=== PATIENT | male | born 1970 | race African-American/Black ===

== ENCOUNTER 2017-02-15 11:41 | Emergency (ER) | payer MEDICAID ==
[~2017-02-15] VITALS: Ht 180.3 cm; Wt 84.0 kg
[~2017-02-15 11:41] MED LIST: DOCU-150 PO; FERR-63 PO; FOLI-43 PO; GABA-531 PO; LOSA25TA3 PO; POTA20TA82 PO; vitamin b1 PO
[2017-02-15] MEDS ORDERED: IBUPROFEN 800MG TABLET PO ONE (13:45)
[2017-02-15 18:32] VITALS: BP 116/69
== END 2017-02-15 18:58 | disposition home or self-care (01) ==
LOC: ER 14:16
DX: M25.561 Pain in right knee (principal); M25.461 Effusion, right knee
CPT/HCPCS: 73562; 99284; L1830; Z7610

== ENCOUNTER 2017-03-15 14:26 | Emergency (ER) | payer MEDICAID ==
[~2017-03-15] VITALS: Ht 180.3 cm; Wt 86.0 kg
[2017-03-15] MEDS ORDERED: IBUPROFEN 800MG TABLET PO ONE (16:30)
[2017-03-15 18:56] VITALS: BP 121/65
== END 2017-03-15 19:18 | disposition home or self-care (01) ==
LOC: ER 16:30
DX: S83.91XA Sprain of unspecified site of right knee, initial encounter (principal); X58.XXXA Exposure to other specified factors, initial encounter; Y93.89 Activity, other specified; Y92.89 Other specified places as the place of occurrence of the external cause; Y99.8 Other external cause status
CPT/HCPCS: 93971; 99284

== ENCOUNTER 2017-06-01 11:59 | Emergency (ER) | payer MEDICAID ==
[~2017-06-01] VITALS: Ht 180.3 cm; Wt 80.0 kg
[2017-06-01] MEDS ORDERED: FAMOTIDINE 20MG/2ML VIAL IV STA (13:24)
[2017-06-01] MEDS ORDERED: MORPHINE SULFATE 4 MG/ML CPJ (NOT FOR IM USE) IV STA (13:24)
[2017-06-01] MEDS ORDERED: ONDANSETRON HCL 4MG/2ML VIAL IV STA (13:24)
[2017-06-01 13:56] LABS: HEMATOCRIT. 33.2 % (42.0-52.0); HEMOGLOBIN. 10.6 g/dL (14.0-18.0); MEAN CORPUSCULAR HEMOGLOBIN 22.5 pg (28.0-32.0); MEAN CORPUSCULAR VOLUME 70.4 fL (80.0-94.0); MEAN PLATELET VOLUME 6.5 fl (7.4-10.4); PLATELET 275 x1000/uL (130-400); RED BLOOD CELL COUNT 4.72 mill/uL (4.7-6.1); RED CELL DISTRIBUTION WIDTH 18.4 % (11.6-14.6)
[2017-06-01 14:01] LABS: INR 1.1; PARTIAL THROMBOPLASTIN TIME 27.6 sec (23.4-31.0); PROTHROMBIN TIME 11.3 sec (9.4-11.6)
[2017-06-01 14:13] LABS: CARBON DIOXIDE 24 mEq/L (21-32); CHLORIDE 105 mEq/L (98-107)
[2017-06-01 14:16] LABS: ETHANOL BLOOD 329 mg/dL
[2017-06-01 15:51] LABS: PLATELET ESTIMATE NORMAL
[2017-06-01 16:24] LABS: *AMPHETAMINES SCREEN URINE NEGATIVE (NEGATIVE); *BARBITURATES SCREEN URINE NEGATIVE (NEGATIVE); *BENZODIAZEPINES SCREEN URINE NEGATIVE (NEGATIVE); *COCAINE SCREEN URINE NEGATIVE (NEGATIVE); CANNABINOID URINE SCREEN PRESUMTIVE POSITIVE (NEGATIVE); METHADONE URINE SCREEN NEGATIVE (NEGATIVE); OPIATES URINE SCREEN PRESUMTIVE POSITIVE (NEGATIVE); PHENCYCLIDINE URINE SCREEN NEGATIVE (NEGATIVE)
[2017-06-01 19:35] VITALS: BP 131/79
== END 2017-06-01 19:25 | disposition home or self-care (01) ==
LOC: ER 12:08
DX: F12.10 Cannabis abuse, uncomplicated (principal); F10.129 Alcohol abuse with intoxication, unspecified; D64.9 Anemia, unspecified; R79.1 Abnormal coagulation profile; Y90.8 Blood alcohol level of 240 mg/100 ml or more
CPT/HCPCS: 36415; 74010; 80053; 80305; 83690; 85025; 85610; 85730; 96374; 96375; 99285; G0482; J2270; J2405; J3490; Z7610

== ENCOUNTER 2021-09-26 00:22 | Emergency (ER) | payer MEDICAID ==
[~2021-09-26] VITALS: Ht 180.3 cm; Wt 102.1 kg
[~2021-09-26 00:22] MED LIST changes: +CYAN100T43 MT; -GABA-531 PO; +GABA-532 PO; +L25 PO; +PANT40TA51 MT; +THIA100T72 PO; -vitamin b1 PO
[2021-09-26 00:23] VITALS: BP 134/86
[2021-09-26] MEDS ORDERED: ACET-2708 PO (06:53)
== END 2021-09-26 01:18 | disposition home or self-care (01) ==
LOC: ER 00:22
DX: Z59.00 Homelessness unspecified (principal); Z79.899 Other long term (current) drug therapy
CPT/HCPCS: 99283

== ENCOUNTER 2021-09-26 05:49 | Emergency (ER) | payer MEDICAID ==
[~2021-09-26] VITALS: Ht 180.3 cm; Wt 82.0 kg
[2021-09-26 05:57] VITALS: BP 141/84
[2021-09-26] MEDS ORDERED: ACETAMINOPHEN 325MG TABLET PO ONE (06:45)
[2021-09-26] MEDS ORDERED: ACET-2708 PO (06:53)
== END 2021-09-26 07:10 | disposition home or self-care (01) ==
LOC: ER 05:49
DX: M25.561 Pain in right knee (principal); Z79.899 Other long term (current) drug therapy
CPT/HCPCS: 73560; 99283; Z7610

== ENCOUNTER 2021-11-26 14:33 | Inpatient (IN) | payer MEDICAID ==
[~2021-11-26] VITALS: Ht 190.5 cm; Wt 85.3 kg
[~2021-11-26 14:33] MED LIST changes: +ACET-2708 PO
[2021-11-26] MEDS ORDERED: SODIUM CHLORIDE 0.9% 1,000 ML IV ONE ×2 (15:15→18:15)
[2021-11-26] MEDS ORDERED: FOLIC ACID 1 MG, THIAMINE HCL 100 MG, MVI, ADULT NO.1 10 ML in DEXTROSE 5% WATER 250 ML IV ONE ×4 (15:15)
[2021-11-26 15:19] LABS: CHLORIDE 100 mEq/L (98-107)
[2021-11-26 15:23] LABS: ETHANOL BLOOD < 10 mg/dL
[2021-11-26 15:30] LABS: BASOPHILS % 0.5 % (0.0-2.0); EOSINOPHILS % 0.1 % (0.0-5.0); HEMATOCRIT. 24.1 % (42.0-52.0); HEMOGLOBIN. 7.1 g/dL (14.0-18.0); LYMPHOCYTES % 25.3 % (20.0-50.0); MEAN CORPUSCULAR HEMOGLOBIN 17.9 pg (28.0-32.0); MEAN CORPUSCULAR VOLUME 60.7 fL (80.0-94.0); MEAN PLATELET VOLUME 8.2 fl (7.4-10.4); MONOCYTES % 3.1 % (2.0-8.0); PLATELET 267 x1000/uL (130-400); RED BLOOD CELL COUNT 3.97 mill/uL (4.7-6.1); RED CELL DISTRIBUTION WIDTH 22.3 % (11.6-14.6)
[2021-11-26 17:23] LABS: PLATELET ESTIMATE NORMAL
[2021-11-26] MEDS ORDERED: ONDANSETRON HCL 4MG/2ML INJ IV STA (18:09)
[2021-11-26] MEDS ORDERED: DICYCLOMINE 10 MG/5 ML ORAL SYR PO STA (18:09)
[2021-11-26] MEDS ORDERED: MAGNESIUM/ALUMINUM HYDROXIDE/SIMETHICONE 30ML UDC PO STA (18:09)
[2021-11-26] MEDS ORDERED: IPRATROPIUM/ALBUTEROL 0.5-3(2.5)MG/3ML NEB HHN PRN (18:45)
[2021-11-26] MEDS ORDERED: LORAZEPAM 0.5MG TABLET PO PRN (18:45)
[2021-11-26] MEDS ORDERED: ACETAMINOPHEN 325MG TABLET PO PRN ×2 (18:45)
[2021-11-26] MEDS ORDERED: ONDANSETRON HCL 4MG/2ML INJ IV PRN (18:45)
[2021-11-26] MEDS ORDERED: CLONIDINE 0.1MG TABLET PO PRN (18:45)
[2021-11-26] MEDS ORDERED: HYDROCODONE/ACETAMINOPHEN 5/325MG TABLET PO PRN (18:45)
[2021-11-26] MEDS ORDERED: DOCUSATE SODIUM 100MG CAPSULE PO PRN (18:45)
[2021-11-26] MEDS ORDERED: PIPERACILLIN/TAZ 3.375G PREMIX 50 ML IV SCH (19:00)
[2021-11-26] MEDS ORDERED: NALOXONE HCL 0.4MG/ML VIAL IV PRN (20:00)
[2021-11-26 21:32] LABS: CLARITY URINE CLEAR (CLEAR); COLOR URINE YELLOW (YELLOW); KETONES URINE NEGATIVE (NEGATIVE); LEUKOCYTE ESTERASE URINE NEGATIVE (NEGATIVE); NITRITE URINE NEGATIVE (NEGATIVE); OCCULT BLOOD URINE NEGATIVE (NEGATIVE); PROTEIN URINE NEGATIVE (NEGATIVE); SPECIFIC GRAVITY URINE 1.007 (1.005-1.030)
[2021-11-26 21:41] LABS: CANNABINOID URINE SCREEN PRESUMTIVE POSITIVE (NEGATIVE); METHADONE URINE SCREEN NEGATIVE (NEGATIVE); OPIATES URINE SCREEN NEGATIVE (NEGATIVE); PHENCYCLIDINE URINE SCREEN NEGATIVE (NEGATIVE)
[2021-11-26 21:42] LABS: *AMPHETAMINES SCREEN URINE NEGATIVE (NEGATIVE); *BARBITURATES SCREEN URINE NEGATIVE (NEGATIVE); *BENZODIAZEPINES SCREEN URINE NEGATIVE (NEGATIVE); *COCAINE SCREEN URINE NEGATIVE (NEGATIVE)
[2021-11-26 22:00] VITALS: BP 128/74
[2021-11-26] MEDS ORDERED: PIPERACILLIN/TAZOBACTAM 3.375 G in DEXTROSE 5% WATER 50 ML IV SCH (22:00)
[2021-11-27] VITALS (9 sets, daily range): BP systolic 100–120; BP diastolic 51–80
[2021-11-27] MEDS ORDERED: PIPERACILLIN/TAZOBACTAM 3.375 G in DEXTROSE 5% WATER 50 ML IV SCH (06:00)
[2021-11-27 08:50] LABS: BASOPHILS % 0.4 % (0.0-2.0); EOSINOPHILS % 0.1 % (0.0-5.0); MEAN CORPUSCULAR HEMOGLOBIN 18.5 pg (28.0-32.0); MEAN CORPUSCULAR VOLUME 60.4 fL (80.0-94.0); MEAN PLATELET VOLUME 8.5 fl (7.4-10.4); NEUTROPHILS % 81.5 % (40.0-76.0); PLATELET 286 x1000/uL (130-400); RED BLOOD CELL COUNT 3.45 mill/uL (4.7-6.1); RED CELL DISTRIBUTION WIDTH 21.6 % (11.6-14.6)
[2021-11-27 08:59] LABS: CHLORIDE 103 mEq/L (98-107)
[2021-11-27 09:18] LABS: HEMATOCRIT. 20.8 % (42.0-52.0); HEMOGLOBIN. 6.4 g/dL (14.0-18.0)
[2021-11-27] MEDS: PIPERACILLIN/TAZOBACTAM 3.375 G in DEXTROSE 5% WATER 50 ML IV SCH ×3 (10:03→20:46)
[2021-11-27] MEDS ORDERED: POTASSIUM CHLORIDE INJ 40 MEQ in DEXT 5% WATER 250 ML IV ONE (11:00)
[2021-11-27] MEDS: KCL 20MEQ/100ML X 2 FOR TOTAL KCL 40MEQ/200ML IV SCH (18:00)
[2021-11-27 21:01] LABS: HEMATOCRIT 25.1 % (42.0-52.0); HEMOGLOBIN 7.5 g/dL (14.0-18.0)
[2021-11-28] VITALS: BP 111/71
[2021-11-28 04:00] VITALS: BP 109/70
[2021-11-28] MEDS: PIPERACILLIN/TAZOBACTAM 3.375 G in DEXTROSE 5% WATER 50 ML IV SCH ×3 (05:11→22:26)
[2021-11-28] MEDS: KCL 20MEQ/100ML X 2 FOR TOTAL KCL 40MEQ/200ML IV SCH (05:11)
[2021-11-28 08:00] VITALS: BP 91/51
[2021-11-28 08:02] LABS: HEMATOCRIT. 25.9 % (42.0-52.0); HEMOGLOBIN. 8.1 g/dL (14.0-18.0); MEAN CORPUSCULAR HEMOGLOBIN 19.8 pg (28.0-32.0); MEAN CORPUSCULAR VOLUME 63.5 fL (80.0-94.0); MEAN PLATELET VOLUME 8.2 fl (7.4-10.4); PLATELET 306 x1000/uL (130-400); RED BLOOD CELL COUNT 4.09 mill/uL (4.7-6.1); RED CELL DISTRIBUTION WIDTH 24.9 % (11.6-14.6)
[2021-11-28 08:36] LABS: CHLORIDE 104 mEq/L (98-107)
[2021-11-28] MEDS: PANTOPRAZOLE SODIUM 40 MG/VIAL IV SCH ×2 (11:18→22:27)
[2021-11-28 12:00] VITALS: BP 108/72
[2021-11-28 14:57] LABS: TOTAL IRON BINDING CAPACITY 349 ug/dL (250-450)
[2021-11-28 16:00] VITALS: BP 113/70
[2021-11-28 16:51] LABS: FOLIC ACID (FOLATE) SERUM 8.5 ng/mL (>5.38)
[2021-11-28] MEDS ORDERED: POTASSIUM CHLORIDE 20MEQ TABLET SR PO NR ×2 (19:30→21:30)
[2021-11-28 20:00] VITALS: BP 111/71
[2021-11-28 22:07] LABS: HEMATOCRIT 26.7 % (42.0-52.0)
[2021-11-28 22:15] LABS: INR 1.2; PROTHROMBIN TIME 12.4 sec (9.6-11.0)
[2021-11-28] MEDS: DEXT 5%/0.9% NACL KCL 20MEQ/L 1,000 ML IV SCH (22:26)
[2021-11-29] VITALS: BP 103/56
[2021-11-29 00:16] LABS: PLATELET ESTIMATE NORMAL
[2021-11-29 00:50] LABS: HEMATOCRIT 24.7 % (42.0-52.0); HEMOGLOBIN 7.3 g/dL (14.0-18.0)
[2021-11-29 04:00] VITALS: BP 105/52
[2021-11-29 05:26] LABS: HEMATOCRIT. 26.4 % (42.0-52.0); HEMOGLOBIN. 7.8 g/dL (14.0-18.0); MEAN CORPUSCULAR HEMOGLOBIN 18.9 pg (28.0-32.0); MEAN CORPUSCULAR VOLUME 63.4 fL (80.0-94.0); MEAN PLATELET VOLUME 8.5 fl (7.4-10.4); PLATELET 334 x1000/uL (130-400); RED BLOOD CELL COUNT 4.16 mill/uL (4.7-6.1); RED CELL DISTRIBUTION WIDTH 26.2 % (11.6-14.6)
[2021-11-29 05:34] LABS: INR 1.1; PROTHROMBIN TIME 12.2 sec (9.6-11.0)
[2021-11-29] MEDS: PIPERACILLIN/TAZOBACTAM 3.375 G in DEXTROSE 5% WATER 50 ML IV SCH ×3 (06:04→23:30)
[2021-11-29 06:26] LABS: CHLORIDE 106 mEq/L (98-107)
[2021-11-29 08:00] VITALS: BP 108/67
[2021-11-29] MEDS: PANTOPRAZOLE SODIUM 40 MG/VIAL IV SCH ×2 (08:36→23:14)
[2021-11-29] MEDS ORDERED: POTASSIUM CHLORIDE INJ 40 MEQ in DEXT 5% WATER 250 ML IV STA (09:46)
[2021-11-29] MEDS: KCL 20MEQ/100ML X 2 FOR TOTAL KCL 40MEQ/200ML IV SCH ×2 (10:52→16:02)
[2021-11-29] MEDS: DEXT 5%/0.9% NACL KCL 20MEQ/L 1,000 ML IV SCH ×2 (10:53→23:14)
[2021-11-29 12:00] VITALS: BP 125/66
[2021-11-29] MEDS ORDERED: MIDAZOLAM HCL 5 MG/5 ML VIAL ONE (12:36)
[2021-11-29] MEDS ORDERED: PROPOFOL 200MG/20ML VIAL IV ONE (12:36)
[2021-11-29] MEDS ORDERED: LIDOCAINE HCL 1% 10 MG/ML 10ML VIAL ONE (12:36)
[2021-11-29] MEDS ORDERED: SIMETHICONE 40 MG/0.6 ML 15ML ONE (12:41)
[2021-11-29 12:47] LABS: HEMATOCRIT 24.8 % (42.0-52.0); HEMOGLOBIN 7.5 g/dL (14.0-18.0)
[2021-11-29] MEDS ORDERED: EPHEDRINE SULFATE 50MG/ML VIAL ONE (13:02)
[2021-11-29 14:41] LABS: NUCLEATED RED BLOOD CELLS 2 /100 WBC
[2021-11-29 14:42] LABS: PLATELET ESTIMATE NORMAL
[2021-11-29 16:00] VITALS: BP 117/69
[2021-11-29 18:19] LABS: HEMATOCRIT 24.9 % (42.0-52.0); HEMOGLOBIN 7.5 g/dL (14.0-18.0)
[2021-11-29 20:00] VITALS: BP 114/74
[2021-11-30] VITALS: BP 136/80
[2021-11-30 01:11] LABS: HEMATOCRIT 25.3 % (42.0-52.0); HEMOGLOBIN 7.5 g/dL (14.0-18.0)
[2021-11-30 04:00] VITALS: BP 130/80
[2021-11-30] MEDS: PIPERACILLIN/TAZOBACTAM 3.375 G in DEXTROSE 5% WATER 50 ML IV SCH ×2 (05:26→15:52)
[2021-11-30] MEDS: DEXT 5%/0.9% NACL KCL 20MEQ/L 1,000 ML IV SCH ×2 (05:26→13:44)
[2021-11-30 07:24] LABS: BASOPHILS % 0.7 % (0.0-2.0); EOSINOPHILS % 1.5 % (0.0-5.0); HEMATOCRIT. 24.3 % (42.0-52.0); HEMOGLOBIN. 7.3 g/dL (14.0-18.0); LYMPHOCYTES % 23.4 % (20.0-50.0); MEAN CORPUSCULAR HEMOGLOBIN 19.1 pg (28.0-32.0); MEAN CORPUSCULAR VOLUME 63.5 fL (80.0-94.0); MEAN PLATELET VOLUME 8.3 fl (7.4-10.4); MONOCYTES % 13.5 % (2.0-8.0); NEUTROPHILS % 60.9 % (40.0-76.0); PLATELET 369 x1000/uL (130-400); RED BLOOD CELL COUNT 3.82 mill/uL (4.7-6.1); RED CELL DISTRIBUTION WIDTH 25.9 % (11.6-14.6)
[2021-11-30 08:00] VITALS: BP 148/99
[2021-11-30 08:29] LABS: CHLORIDE 110 mEq/L (98-107)
[2021-11-30] MEDS: PANTOPRAZOLE SODIUM 40 MG/VIAL IV SCH (09:30)
[2021-11-30] MEDS ORDERED: PANT40TA51 MT (10:26)
[2021-11-30] MEDS ORDERED: FERR325T6 MT (10:26)
[2021-11-30] MEDS ORDERED: POTA20TA82 PO (10:26)
[2021-11-30] MEDS ORDERED: IRON SUCROSE XX SCH (10:30)
[2021-11-30 12:00] VITALS: BP 132/68
[2021-11-30] MEDS ORDERED: IRON SUCROSE COMPLEX 300 MG in SODIUM CHLORIDE 0.9% 250 ML IV NR (12:00)
[2021-11-30 16:00] VITALS: BP 125/62
[2021-11-30 18:18] VITALS: BP 135/60
== END 2021-11-30 18:41 | disposition home or self-care (01) | DRG 241 ==
LOC: ER 14:33 → MICUSO 17:09 → 5WST 19:40
PROVIDERS: ADMIT Internal Medicine; ATTEND Internal Medicine
PROC: 30233N1 Transfusion of Nonautologous Red Blood Cells into Peripheral Vein, Percutaneous Approach (ICD-10-PCS; principal; 2021-11-27)
PROC: 0DB68ZX Excision of Stomach, Via Natural or Artificial Opening Endoscopic, Diagnostic (ICD-10-PCS; 2021-11-29)
DX: K29.71 Gastritis, unspecified, with bleeding (principal); D50.9 Iron deficiency anemia, unspecified; R55 Syncope and collapse; Z20.822 Contact with and (suspected) exposure to COVID-19; Z87.11 Personal history of peptic ulcer disease; Z72.89 Other problems related to lifestyle
CPT/HCPCS: 36415; 80048; 80053; 80305; 80320; 81003; 82607; 82728; 82746; 83540; 83550; 85014; 85018; 85025; 85044; 86850; 86900; 86920; 87426; 88305; 88312; 88313; 93005; 99291; C9113; J2250; J2405; J2543; J2704; J3411; J3480; J3490; J7030; J7050; J7060; J7070; P9016; G0480

== ENCOUNTER 2021-12-06 23:48 | Emergency (ER) | payer MEDICAID ==
[~2021-12-06] VITALS: Ht 182.9 cm; Wt 113.0 kg
[~2021-12-06 23:48] MED LIST changes: -CYAN100T43 MT; -FERR-63 PO; +FERR325T6 MT; -L25 PO
[2021-12-06 23:54] VITALS: BP 121/86
[2021-12-07] MEDS ORDERED: ACETAMINOPHEN 325MG TABLET PO STA (00:43)
[2021-12-07] MEDS ORDERED: ONDANSETRON HCL 4MG/2ML INJ IV STA (00:43)
[2021-12-07 01:14] LABS: BASOPHILS % 1.1 % (0.0-2.0); EOSINOPHILS % 0.2 % (0.0-5.0); HEMATOCRIT. 25.6 % (42.0-52.0); HEMOGLOBIN. 7.9 g/dL (14.0-18.0); LYMPHOCYTES % 27.1 % (20.0-50.0); MEAN CORPUSCULAR HEMOGLOBIN 19.3 pg (28.0-32.0); MEAN CORPUSCULAR VOLUME 62.1 fL (80.0-94.0); MEAN PLATELET VOLUME 6.3 fl (7.4-10.4); MONOCYTES % 3.2 % (2.0-8.0); NEUTROPHILS % 68.4 % (40.0-76.0); PLATELET 734 x1000/uL (130-400); RED BLOOD CELL COUNT 4.11 mill/uL (4.7-6.1); RED CELL DISTRIBUTION WIDTH 26.5 % (11.6-14.6)
[2021-12-07 01:22] LABS: CHLORIDE 107 mEq/L (98-107)
[2021-12-07] MEDS ORDERED: FAMOTIDINE 20MG TABLET PO ONE (03:45)
[2021-12-07] MEDS ORDERED: MAGNESIUM/ALUMINUM HYDROXIDE/SIMETHICONE 30ML UDC PO ONE (03:45)
== END 2021-12-07 03:19 | disposition home or self-care (01) ==
LOC: ER 23:48
DX: R10.11 Right upper quadrant pain (principal); R11.2 Nausea with vomiting, unspecified; F12.10 Cannabis abuse, uncomplicated; Z79.899 Other long term (current) drug therapy
CPT/HCPCS: 36415; 80053; 85025; 93005; 96374; 99284; J2405

== ENCOUNTER 2021-12-07 08:27 | Emergency (ER) | payer MEDICAID ==
[~2021-12-07] VITALS: Ht 177.8 cm; Wt 100.0 kg
[2021-12-07 08:50] VITALS: BP 127/71
[2021-12-07] MEDS ORDERED: FAMOTIDINE 20MG/2ML VIAL IV STA (08:56)
[2021-12-07] MEDS ORDERED: ONDANSETRON HCL 4MG/2ML INJ IV STA (08:56)
[2021-12-07] MEDS ORDERED: SODIUM CHLORIDE 0.9% 1,000 ML IV ONE (09:00)
[2021-12-07 09:45] LABS: BASOPHILS % 0.7 % (0.0-2.0); EOSINOPHILS % 0.4 % (0.0-5.0); HEMATOCRIT. 25.7 % (42.0-52.0); HEMOGLOBIN. 7.9 g/dL (14.0-18.0); LYMPHOCYTES % 9.4 % (20.0-50.0); MEAN CORPUSCULAR HEMOGLOBIN 19.1 pg (28.0-32.0); MEAN PLATELET VOLUME 6.6 fl (7.4-10.4); MONOCYTES % 4.5 % (2.0-8.0); PLATELET 686 x1000/uL (130-400); RED BLOOD CELL COUNT 4.14 mill/uL (4.7-6.1); RED CELL DISTRIBUTION WIDTH 27.3 % (11.6-14.6)
[2021-12-07 09:52] LABS: CHLORIDE 108 mEq/L (98-107)
[2021-12-07 09:54] LABS: ETHANOL BLOOD 211 mg/dL
[2021-12-07 10:03] LABS: PLATELET ESTIMATE INCREASED
== END 2021-12-07 12:08 | disposition left against medical advice (07) ==
LOC: ER 08:27
DX: F10.129 Alcohol abuse with intoxication, unspecified (principal); D50.9 Iron deficiency anemia, unspecified; F12.10 Cannabis abuse, uncomplicated; Z79.899 Other long term (current) drug therapy; Y90.7 Blood alcohol level of 200-239 mg/100 ml
CPT/HCPCS: 36415; 80053; 80320; 83690; 85025; 93005; 99284; J7030; G0480

== ENCOUNTER 2022-08-08 13:43 | Emergency (ER) | payer MEDICAID ==
[~2022-08-08] VITALS: Ht 180.3 cm; Wt 89.0 kg
[~2022-08-08 13:43] MED LIST changes: +POTA-204 PO; -POTA20TA82 PO
[2022-08-08 15:53] VITALS: BP 126/78
[2022-08-08] MEDS ORDERED: SODIUM CHLORIDE 0.9% 1,000 ML IV ONE (16:30)
== END 2022-08-08 18:07 | disposition left against medical advice (07) ==
LOC: ER 13:43
DX: Z53.21 Procedure and treatment not carried out due to patient leaving prior to being seen by health care provider (principal)
CPT/HCPCS: 82962; 99281; J7030